=== PATIENT | female | born 1985 | race Native Hawaiian/Other Pacific Islander ===

== ENCOUNTER 2020-06-10 11:39 | Emergency (ER) | payer OTHER ==
[~2020-06-10] VITALS: Ht 167.6 cm; Wt 127.0 kg
[2020-06-10 11:49] VITALS: BP 132/82; TEMP 98.1
[2020-06-10 12:47] LABS: PLATELET COUNT 206 K/uL (152-353)
[2020-06-10 12:57] LABS: POTASSIUM 3.4 mmol/L (3.6-5.2); SODIUM 138 mmol/L (136-145)
[2020-06-10 13:08] LABS: PARTIAL THROMBOPLASTIN TIME 27.2 SECONDS (24.5-33.6)
== END 2020-06-10 14:41 | disposition home or self-care (01) ==
LOC: ED 11:39
PROVIDERS: Family Medicine
DX: N39.0 Urinary tract infection, site not specified (principal); E87.6 Hypokalemia; F41.8 Other specified anxiety disorders
CPT/HCPCS: 80053; 81000; 81025; 84484; 85027; 85379; 85610; 85730; 93005; 96372; 99283; J0696